=== PATIENT | male | born 1975 | race Caucasian/White ===

== ENCOUNTER 2016-12-13 03:34 | Emergency (ER) | payer OTHER ==
[~2016-12-13] VITALS: Ht 172.7 cm; Wt 104.3 kg
--- NOTE | ~2016-12-13 | CR133 ---
[facility] A Service of [facility] RADIOLOGY TEXT RESULTS PATIENT: FUAD PAREKH LOCATION: [facility] : 71 UNIT #: [id number] AGE: [address]: Trinity Dan SEX: M ORDER DR: [id number] [facility] [address] [place], [place] [address] [id number] E MR#: [id number] Acc #: [id number] NAME: FUAD PAREKH. : 1975 SEX: M STUDY DATE/TIME: 12/13/2016 4:03 UNIT: [facility] ROOM: STUDY DESCRIPTION: CR Forearm 2 View Rt Attending Physician: Trinity Dan Pa-C Ordering Physician: Ed Doctor [id number] [facility] Primary Care Physician: Tiarra Bowen M.D. MEDICAL IMAGING REPORT This report is preliminary unless electronic signature is present EXAM Right forearm series INDICATIONS Right forearm laceration tonight. Observation for foreign body. PROCEDURE 3 views of the right forearm. FINDINGS Laceration along the anterior right mid forearm. No radiodense foreign body. No acute bony injury. IMPRESSION Laceration along the anterior right mid forearm. No radiodense foreign body or bone injury Dictated by... Stone Muñoz M.D. THIS IS AN ELECTRONICALLY VERIFIED REPORT Stone Muñoz M.D. at 12/13/2016 9:55 PM AMARI/[email or web address] TD: 12/13/2016 09:00 JOB #: [id number] MEDICAL IMAGING REPORT Page 1 of 1 COPY
[~2016-12-13 03:34] MED LIST: BACTRIM DS TABL1 TAB PO; KEFLEX PO; LORTAB 7.5-5001 TAB PO; VICODIN 5/500 T1 TAB PO
== END 2016-12-13 05:15 | disposition home or self-care (01) ==
LOC: CED 03:34
DX: S51.811A Laceration without foreign body of right forearm, initial encounter (principal); F17.200 Nicotine dependence, unspecified, uncomplicated; Z23 Encounter for immunization; X58.XXXA Exposure to other specified factors, initial encounter; Y92.009 Unspecified place in unspecified non-institutional (private) residence as the place of occurrence of the external cause
CPT/HCPCS: 12032; 73090; 90471; 90715; 99283